=== PATIENT | male | born 1995 | race Caucasian/White ===

== ENCOUNTER 2021-02-02 13:03 | Day surgery (SDC) | payer OTHER ==
[~2021-02-02 13:03] MED LIST: SODIUM CHLORIDE 0.9% IV SCH; USTEKINUMAB IV SCH
[2021-02-02] MEDS ORDERED: Ustekinumab 390 MG in Sodium Chloride 0.9% 250 ML 172 ML IV SCH (13:30)
[2021-02-02] MEDS ORDERED: diphenhydrAMINE 25 MG CAP PO PRN (13:48)
[2021-02-02] MEDS ORDERED: Acetaminophen 500 MG TAB PO PRN (13:48)
[2021-02-02] MEDS ORDERED: Sodium Chloride 0.9% 20 ML ONE (14:10)
[2021-02-02 14:32] VITALS: BP 101/70; TEMP 98.1
== END 2021-02-02 15:24 | disposition home or self-care (01) ==
LOC: ONC/OP 13:03
PROVIDERS: ATTEND Internal Medicine Gastroenterology
DX: K50.10 Crohn's disease of large intestine without complications (principal)
CPT/HCPCS: 96413; J3358; J7050